=== PATIENT | male | born 1995 | race Two or more races ===

== ENCOUNTER 2022-07-23 01:23 | Emergency (ER) | payer SELFPAY ==
[~2022-07-23] VITALS: Ht 182.9 cm; Wt 184.4 kg
[2022-07-23 01:30] VITALS: BP 134/75
== END 2022-07-23 04:32 | disposition left against medical advice (07) ==
LOC: ER 01:26
DX: R51.9 Headache, unspecified (principal); R42 Dizziness and giddiness; R07.89 Other chest pain; Z53.21 Procedure and treatment not carried out due to patient leaving prior to being seen by health care provider
CPT/HCPCS: 71045

== ENCOUNTER 2022-07-31 23:47 | Emergency (ER) | payer SELFPAY ==
[~2022-07-31] VITALS: Ht 182.9 cm; Wt 181.8 kg
[2022-08-01 00:27] VITALS: BP 143/87
== END 2022-08-01 01:20 | disposition left against medical advice (07) ==
LOC: ER 23:47
DX: R42 Dizziness and giddiness (principal); Z53.21 Procedure and treatment not carried out due to patient leaving prior to being seen by health care provider

== ENCOUNTER → 2022-08-19 | Emergency (ER) | payer SELFPAY | END | disposition left against medical advice (07) | LOC: ER 02:01 | DX: R42 Dizziness and giddiness (principal); Z53.21 Procedure and treatment not carried out due to patient leaving prior to being seen by health care provider ==

== ENCOUNTER 2024-08-30 10:36 | Emergency (ER) | payer BC, MEDICAID ==
[~2024-08-30] VITALS: Ht 182.9 cm; Wt 181.0 kg
--- NOTE | 2024-08-30 11:11 | ED.PDOC ---
Musculoskeletal HPI Comments 28 year old male presents for acute onset of left foot pain located to the distal 3rd phalanx Mechanism of injury: kicked box Happened 1 day ago Taking no medications Able to ambulate Chief Complaint: Lower Extremity Time Seen by MD: 10:54 Reviewed Notes: Nurses Notes, Medications, Allergies Allergies: Coded Allergies: NO KNOWN ALLERGIES (Unverified , 07/23/22) Home Meds Active Scripts Bacitracin Base (Bacitracin) 500 Unit/Gm Oin, 1 APPLIC OP DAILY for 10 Days, #5 GRAMS 0 Refills Prov:DARÍO PANDA Piyush [employer] 08/30/24 Information Source: Patient Mode of Arrival: Wheelchair Family History Family History: Reviewed,noncontributory to illness Social History Smoker: Non-Smoker Alcohol: Denies ETOH Use Drugs: Denies Drug Use All Other Systems: Reviewed and Negative (Per HPI) Physical Exam General Appearance: No Apparent Distress, Normal HEENT: Normal ENT Inspection, Pharynx Normal, TMs Normal Neck: Full Range of Motion, Non-Tender, Normal, Normal Inspection Respiratory: Chest Non-Tender, Lungs Clear, No Accessory Muscle Use, No Respiratory Distress, Normal Breath Sounds Cardiovascular: No Edema, No JVD, No Murmur, No Gallop, Normal Peripheral Pulses, Regular Rate/Rhythm Breast Exam: Deferred Gastrointestinal: No Organomegaly, Non Tender, No Pulsatile Mass, Normal Bowel Sounds, Soft Genitalia: Deferred Pelvic: Deferred Rectal: Deferred Extremities: No calf tenderness, Normal capillary refill, Normal inspection, Normal range of motion, Non-tender, No pedal edema Musculoskeletal : Apperance: Normal Neurologic: Alert, No Motor Deficits, Normal Affect, Normal Mood, No Sensory Deficits Cerebellar Function: Normal Reflexes: Normal Skin: Dry, Normal Color, Warm Lymphatic: No Adenopathy Was a procedure done? Was a procedure done?: No Images 1 - No no obvious deformity. Full ROM. No erythema. Superficial abrasion to the skin around the lateral nail bed. Hemostasis. Differential Diagnosis EXT Differential Diagnosis: Fracture, Sprain, Dislocation X-Ray, Labs, Meds, VS Vital Signs Date Time Temp Pulse Resp B/P (MAP) Pulse Ox O2 Delivery O2 Flow Rate FiO2 08/30/24 11:17 99.5 100 20 129/93 (105) 96 99.5 08/30/24 11:17 100 20 96 Room Air 08/30/24 10:53 99.5 100 20 129/93 105 96 PATIENT: KIMBERLY SANTAMARIACT: [id number]: [id number] : 1995 LOC: ER ROOM / BED: / AGE / SEX: 28 / M ADM STATUS: REG ER SERVICE 1110 ORDERING PHYSICIAN: DARÍO PANDA NP PROCEDURE(s): LFOOT - L FOOT 3 VIEW XRAY REASON: toe pain to 3rd phalanx ORDER NUMBER(s): [id number], ACCESSION NUMBER(s): [id number] PROCEDURE: Left foot radiographs. INDICATION: toe pain to 3rd phalanx TECHNIQUE: 2 views of the left foot were obtained. COMPARISON: None FINDINGS: There is no evidence of fracture or dislocation. Joint spaces are maintained. The soft tissues are unremarkable. IMPRESSION: 1. No fracture or dislocation. ATED BY: BRI RODRIGUEZ MD DICTATED DATE/TIME: 08/30/24 1139 SIGNED BY: BRI RODRIGUEZ MD SIGNED DATE/TIME: 08/30/24 1139 CC: X-Ray, Labs, Meds, VS Comment History and examination consistent with superficial abrasion. No acute findings on xray. X-rays ordered, read by radiologist and reviewed by me The foot was cleaned with soap and normal saline. Triple antibiotic on it was applied. Foot was Randolph wrapped. Supplies was given to the patient. Advised to return for any worsening symptoms. Offered crutches however patient declined Recommended heat therapy Reviewed RICE management Avoid heavy lifting or strenuous activity Recommended range of motion exercises and limit heavy activity for 1 week If no improvement advised patient to return to the emergency department for follow-up. Discussed possibility of a occult fracture Time of 1ST Reevaluation: 11:51 Reevaluation 1ST: Improved Patient Education/Counseling: Diagnosis, Treatment Family Education/Counseling: Diagnosis, Treatment Departure 1 Departure Time of Disposition: 12:12 Impression: Primary Impression: Toe pain Qualified Codes: M79.675 - Pain in left toe(s) Additional Impression: Foot trauma Qualified Codes: S99.922A - Unspecified injury of left foot, initial encounter Disposition: HOME / SELF CARE / HOMELESS Condition: Stable e-Prescriptions Bacitracin Base (Bacitracin) 500 Unit/Gm Oin 1 APPLIC OP DAILY for 10 Days, #5 GRAMS 0 Refills Prov: DARÍO PANDA [employer]IST 08/30/24 Discharged With: Self Critical Care Note Critical Care Time?: No Stability Stability form required: No Heart Score Heart Score: Heart Score Response (Comments) Value History N/A 0 EKG N/A 0 Age N/A 0 Risk Factors N/A 0 Troponin N/A 0 Total 0 DARÍO PANDA NP Aug 30, 2024 11:11
[2024-08-30 11:17] VITALS: BP 129/93; PULSE 100; RESP 20; TEMP 99.5; O2SAT 96
--- NOTE | 2024-08-30 11:42 | DVH ---
PROCEDURE: Left foot radiographs. INDICATION: toe pain to 3rd phalanx TECHNIQUE: 2 views of the left foot were obtained. COMPARISON: None FINDINGS: There is no evidence of fracture or dislocation. Joint spaces are maintained. The soft tis sues are unremarkable. IMPRESSION: 1. No fracture or dislocation.
[2024-08-30] MEDS ORDERED: BACIOIN15 OP (12:15)
== END 2024-08-30 12:20 | disposition home or self-care (01) ==
LOC: ER 10:36
DX: S99.922A Unspecified injury of left foot, initial encounter (principal); Z79.899 Other long term (current) drug therapy; W22.8XXA Striking against or struck by other objects, initial encounter; Y93.89 Activity, other specified; Y92.89 Other specified places as the place of occurrence of the external cause; Y99.8 Other external cause status
CPT/HCPCS: 73630